=== PATIENT | male | born 2000 | race Caucasian/White ===

== ENCOUNTER 2022-08-25 00:14 | Emergency (ER) | payer SELFPAY ==
[2022-08-25 00:34] VITALS: BP 148/95; BP 158/86; PULSE 97; PULSE 98; RESP 18; TEMP 36.4; O2SAT 98; O2SAT 99; BMI 29.7
--- NOTE | 2022-08-25 00:45 | PC.NURSE ---
pt unable to answer questions appropriately, no apparent distress, redirected to stay in bed multiple times
[2022-08-25 01:11] LABS: Appearance Urine Clear; Color Urine Yellow; Glucose Urine UA Negative (Negative); Leukocyte Esterase Urine Negative (Negative); Nitrite Urine Negative (Negative); PH 6.5 (5.0-9.0); Specific Gravity - Urine <= 1.005 (1.005-1.025); Urine Blood Negative (Negative); Urine Ketones Negative (Negative); Urine Protein Negative (Neg-Trace)
--- NOTE | 2022-08-25 01:33 | ED.WOUNDLAC ---
HPI - Wound/Laceration General Chief Complaint: Wound/Laceration Stated Complaint: Lac Time Seen by Provider: 08/25/22 01:03 Source: patient and EMS Mode of arrival: EMS Limitations: language barrier ([place] speaking only) History of Present Illness HPI narrative: 22-year-old male who is brought to emergency department by EMS for a fall at home with a laceration below his left elbow. The patient admits to drinking alcohol and does appear to be intoxicated. He does not remember how we injured himself. The patient does have self-inflicted wounds on his left arm which are well healed. The patient has a 5 cm laceration proximal to the left elbow which extends into the muscle layer but is not actively bleeding. The patient states that his last tetanus shot was 1 and half years prior. He denies headache, neck pain, chest pain, abdominal pain. Related Data Allergies Allergy/AdvReac Type Severity Reaction Status Date / Time No Known Allergies Allergy Verified 08/25/22 00:55 Review of Systems Review of Systems: Yes all other systems are reviewed and are negative [facility] Past Medical History [facility] Narrative: Past medical history: None. Social history: He does admit to drinking alcohol this evening. Social History Social History Alcohol intake: unknown Use of substances other than those prescribed or required for medical reasons: Unknown Physical Exam Vital Signs: Vital Signs: Last Vital Signs Temp 97.6 F 08/25/22 00:34 Pulse 97 08/25/22 00:34 Resp 18 08/25/22 00:34 BP 148/95 H 08/25/22 00:34 Pulse Ox 99 08/25/22 00:34 O2 Del Method Room Air 08/25/22 00:34 BMI result Body Mass Index 29.7 General: Awake, alert male patient, does have a strong odor of alcohol on his breath, appears to be intoxicated. HEENT: Head is normocephalic atraumatic, pupils equal round reactive light, sclera contact however normal. Neck: Supple, nontender, no C-spine tender Lungs: Clear to auscultation Chest: No tenderness Abdomen: Soft, nontender, nondistended, normal bowel sounds Back: Nontender Extremities: The patient has 5.0 cm laceration distal to the left elbow extending into the muscle layer, extremities neurovascular intact Neuro: Nonfocal Medical Decision Making Medical Decision Making MDM Narrative: 22-year-old male who was intoxicated who presents emergency department for evaluation of a laceration to the left arm proximal to the elbow. The patient does not appear to have any other significant injury. The laceration did require surgical repair. The wound was cleaned with Betadine and then anesthetized with 1% lidocaine. The wound was then closed in 1 layer using flavio. Total of 9 flavio were used to close the wound. The patient tolerated the procedure well. He was able to drink fluid and eat a sandwich here in the emergency department without any difficulty. The patient can be discharged home when he can find a sober ride. Lab Data Labs: Lab Results 08/25/22 Range/Units 01:06 Urine Color Yellow Urine Appearance Clear Urine pH 6.5 (5.0-9.0) Ur Specific [place] <= 1.005 (1.005-1.025) Urine Protein Negative (Neg-Trace) mg/dL Urine Glucose (UA) Negative (Negative) mg/dL Urine Ketones Negative (Negative) mg/dL Urine Blood Negative (Negative) Urine Nitrite Negative (Negative) Ur Leukocyte Esterase Negative (Negative) Procedures Laceration Left triceps laceration, 5 cm: Site: upper extremity (Triceps proximal to elbow) Side (If applicable): left Size (cm): 5 Description: linear Depth: involves muscle layer Local Anesthetic: lidocaine 1% Amount of anesthesia used (mL): 10 Pre-repair: wound explored Size (cm): other (flavio) Number of sutures: 9 Discharge Plan Discharge Clinical Impression: Fall, Alcohol intoxication, Laceration of left upper extremity Patient Disposition: Home, Self-Care Instructions: Laceration (ED) Additional Instructions: The laceration above your elbow was repaired with flavio. You got a total of 9 flavio. The flavio need to stay in for 10 days. Your doctor, in urgent care clinic or the emergency department can remove the flavio. Do not remove them your self. Apply bacitracin twice a day. Watch for signs of infection which would include increased swelling, increased redness, red streaks going away from the wound, increased pain. Follow-up with your doctor in 2 days. Please return to the emergency department if your symptoms get worse or if you develop any symptoms that are concerning to you.
[2022-08-25] MEDS: Lidocaine HCl 1%/Epi 1:100,000 20 ML VIAL INFILTRATI (02:14)
[2022-08-25] MEDS: Bacitracin Oint 0.9 GM PACKET 1 APPL TOPICAL (02:32)
--- NOTE | 2022-08-25 05:56 | PC.NURSE ---
pt sleeping, no apparent distress
[2022-08-25 07:15] VITALS: BP 125/79; PULSE 80; RESP 14; O2SAT 100
== END 2022-08-25 07:56 | disposition home or self-care (01) ==
PROVIDERS: Emergency Provider Emergency Medicine Emergency Medical Services
DX: S41.112A Laceration without foreign body of left upper arm, initial encounter (principal); W01.0XXA Fall on same level from slipping, tripping and stumbling without subsequent striking against object, initial encounter; Y93.9 Activity, unspecified; Y92.9 Unspecified place or not applicable; Y99.9 Unspecified external cause status
CPT/HCPCS: 12032; 81003; 99284

== ENCOUNTER 2022-09-06 13:21 | Emergency (ER) | payer SELFPAY ==
[2022-09-06 13:28] VITALS: BP 131/88; PULSE 64; RESP 18; TEMP 36.8; O2SAT 98; BMI 24.5
--- NOTE | 2022-09-06 13:29 | ED_ITS ---
HPI - Wound/Laceration General Chief Complaint: General Medical Stated Complaint: [place] need to be removed Time Seen by Provider: 09/06/22 13:27 Source: patient Mode of arrival: ambulatory History of Present Illness HPI narrative: 22-year-old male with a past medical history of laceration to left elbow s/p staple placement on 08/25/2022 in our ED presenting for staple removal. Denies fever, chills, numbness/tingling, drainage from area Onset (ago): day(s) Related Data Allergies Allergy/AdvReac Type Severity Reaction Status Date / Time No Known Allergies Allergy Verified 08/25/22 00:55 Review of Systems Review of Systems: Constitutional: No Weight loss, No Fever, No Chills ENT/Mouth: No Ear Pain, No sore throat, No Rhinorrhea, No Swallowing Difficulty Cardiovascular: No Chest Pain, No SOB Respiratory: No Cough Gastrointestinal: No Nausea, No Vomiting, No Abdominal pain Musculoskeletal: No joint pain, No Myalgias, No Joint Swelling Skin: +skin Lesions, No rash Neuro: No Weakness, No Numbness, No Paresthesias Yes all other systems are reviewed and are negative Constitutional: Constitutional: Reports as per [facility] Past Medical History Attestation statement: The following information was validated with the patient. Social History Social History Alcohol intake: unknown Physical Exam Vital Signs: Vital Signs: Last Vital Signs Temp 98.2 F 09/06/22 13:28 Pulse 64 09/06/22 13:28 Resp 18 09/06/22 13:28 BP 131/88 09/06/22 13:28 Pulse Ox 98 09/06/22 13:28 O2 Del Method Room Air 09/06/22 13:28 BMI result Body Mass Index 24.5 Const: General: cooperative, healthy appearing and no acute distress Orientation/consciousness: patient oriented x3 Limitations: no limitations HEENT: Head: Yes normal to inspection and Yes atraumatic Ears: hearing grossly normal bilaterally General nose exam: Normal external nose present Face and sinus: Yes normal facial exam Eyes: General: appearance normal, both eyes and all related structures EOM: EOMs intact bilaterally Neck: Neck: Yes normal visual inspection and Yes no meningeal signs Resp: Effort & Inspection: normal respiratory effort and no respiratory distress Cardio: Rate: regular rate Heart sounds: S1 normal heart sound present and S2 normal heart sound present Skin: Other: + healing laceration to left distal elbow with 8 flavio intact. No surrounding erythema, no fluctuance/induration or warmth Rashes: no rashes Neuro: General: patient oriented x3, tone normal and no meningeal signs Gait exam (Neuro): Normal gait present Extrem: General: Yes normal to inspection Medical Decision Making Medical Decision Making MDM Narrative: 22-year-old male with a past medical history of laceration to left elbow s/p staple placement on 08/25/2022 in our ED presenting for staple removal. On exam vital signs stable, NAD, nontoxic appearing, flavio removed without complicatio ns. No evidence of cellulitis or underlying abscess. Results discussed with patient including worrisome signs and symptoms and strict return precautions, and when to return to the emergency department. They verbalized understanding and feel safe for discharge at this time. Differential Diagnosis Differential Diagnoses: The differential diagnosis associated with the presentation includes As above Lab Data [facility] Lab Attestation statement: I reviewed the patient's lab results. Radiology Impression Discussion of test interpretation with radiology: I have reviewed the radiologist's reading. External Record Review External record reviewed: Inpatient record, Office record, Outpatient record, Prior outpatient labs, Prior outpatient radiology, Primary care record and Outside ED record Procedures Procedure Narrative Procedure Narrative: Staple removal: 8 flavio intact to Left elbow without surrounding erythema, no fluctuance/induration or drainage Removed without with patient Discharge Plan Discharge Clinical Impression: Removal of staple Patient Disposition: Home, Self-Care Instructions: Stitches Removal (ED) Additional Instructions: your flavio were removed today in the ED. Please keep area dry and clean, apply topical bacitracin or Neosporin Area begins to look infected is red or there is drainage return to the ED le quitaron las grapas hoy en el servicio de urgencias. Mantenga el ?shira seca y limpia, aplique bacitracina t?pica o Neosporin El ?shira comienza a lucir infectada est? noa o hay drenaje Regrese al servicio de urgencias Referrals: Physician,None [Primary Care Provider] - 1 week Print Language: Romanian
== END 2022-09-06 13:44 | disposition home or self-care (01) ==
PROVIDERS: Emergency Provider Emergency Medicine
DX: Z48.02 Encounter for removal of sutures (principal); M25.522 Pain in left elbow
CPT/HCPCS: 99281; 99283